=== PATIENT | male | born 1945 | race Caucasian/White ===

== ENCOUNTER 2018-12-24 02:05 | Emergency (ER) | payer MEDICARE, BC ==
[2018-12-24] MEDS ORDERED: Diltiazem 25 MG/5 ML SDV IVPUSH ONE ×2 (02:14→03:15)
--- NOTE | 2018-12-24 02:21 | EDM.PDOC ---
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 He's been feeling very nauseous, has had a sore throat and cold symptoms for the past several days. He did not take any of his medicines yesterday because he thought he would "throat normal". Tonight he wasn't feeling well, got up at the side of his bed, felt very diaphoretic and lightheaded and then fainted. He did not have chest pain, shortness of breath, headache but has had persistent nausea. EMS found him in atrial fibrillation with rapid ventricular response up to 130. He remains in atrial fibrillation, rate is 132, frequent PVCs. Onset: Unknown/Unsure Associated Symptoms: Reports: Cough, Malaise, Nausea/Vomiting, Shortness of Breath, Weakness, Other (Rhinitis and conjunctivitis, mattering of the eyes). Denies: Chest Pain - Related Data Allergies Allergy/AdvReac Type Severity Reaction Status Date / Time No Known Allergies Allergy Verified 12/24/18 02:09 Home Meds: Home Meds Aspirin [Ecotrin] 81 mg PO DAILY 11/18/13 [History] Clopidogrel Bisulfate [Clopidogrel] 75 mg PO DAILY 11/18/13 [History] Ezetimibe [Zetia] 10 mg PO DAILY 11/18/13 [History] HCTZ/Triamterene [Maxzide 25-37.5 MG] 25 - 37.5 mg PO DAILY 11/18/13 [History] Krill/Om-3/DHA/EPA/Phospho/Ast [Krill Oil 1,000 mg Softgel] 1 each PO DAILY [History] Metoprolol Tartrate [Lopressor] 100 mg PO BID 11/18/13 [History] Niacin 500 mg PO DAILY 11/18/13 [History] Ranitidine [Zantac] 150 mg PO BID 11/18/13 [History] Sildenafil [Viagra] 100 mg PO ASDIRECTED PRN 11/18/13 [History] amLODIPine Besylate [Amlodipine Besylate] 5 mg PO DAILY 11/18/13 [History] atorvaSTATin [Lipitor] 40 mg PO DAILY 11/18/13 [History] Acetaminophen [Tylenol] 1 tab PO Q6H PRN 12/24/18 [History] Amiodarone HCl [Pacerone] 1 tab PO BID 12/24/18 [History] Gabapentin [Neurontin] 1 tab PO BID 12/24/18 [History] Nitroglycerin [Nitrostat] 1 tab PO ASDIRECTED 12/24/18 [History] Tofacitinib Citrate [Xeljanz] 5 mg pe PO BID 12/24/18 [History] ED ROS GENERAL - Review of Systems Review Of Systems: See Below Constitutional: Reports: Malaise, Decreased Appetite. Denies: Fever HEENT: Reports: Other (eye mattering) Respiratory: Reports: Shortness of Breath (Intermittent, not persistent), Cough (Nonproductive) Cardiovascular: Denies: Chest Pain, Palpitations GI/Abdominal: Reports: Nausea, Vomiting. Denies: Abdominal Pain : Reports: No Symptoms Skin: Reports: Diaphoresis Neurological: Reports: Weakness. Denies: Confusion, Dizziness, Headache Psychiatric: Reports: No Symptoms ED EXAM, GENERAL - Physical Exam Exam: See Below Exam Limited By: No Limitations General Appearance: Alert, No Apparent Distress Eye Exam: Bilateral Eye: Other (Just mild conjunctival erythema, no mattering or exudate) Head: Other (Healing sutured laceration on the left side of the nasal bridge) Neck: Supple, Non-Tender Respiratory/Chest: No Respiratory Distress, Lungs Clear Cardiovascular: Tachycardia, Irregularly Irregular GI/Abdominal: Soft, Non-Tender Extremities: Other (Just a trace of ankle edema bilaterally, symmetric) Neurological: Alert, Oriented Psychiatric: Normal Affect, Normal Mood Skin Exam: Warm, Dry, Other (Some superficial bruising on the left forearm, healing laceration on his nose) EKG INTERPRETATION EKG Date: 12/24/18 Time: 02:10 Rhythm: A-Fib Rate (Beats/Min): 142 QRS: Normal EKG Interpretation Comments: Atrial fibrillation with rapid ventricular response, frequent PVCs Course - Vital Signs Last Recorded V/S: Last Vital Signs Temp 97.2 F 12/24/18 02:10 Pulse 117 H 12/24/18 03:45 Resp 18 12/24/18 03:45 BP 126/46 L 12/24/18 03:45 Pulse Ox 93 L 12/24/18 03:45 - Orders/Labs/Meds Orders: Active Orders 24 hr Category Date Time Status EKG Documentation Completion [RC] ASDIRECTED Care 12/24/18 02:14 Active EKG 12 Lead [EK] Routine Ther 12/24/18 02:13 Ordered Labs: Laboratory Tests 12/24/18 12/24/18 Range/Units 02:20 02:20 WBC 13.4 H (4.5-11.0) K/uL RBC 4.43 (4.30-5.90) M/uL Hgb 13.8 (12.0-15.0) g/dL Hct 41.6 (40.0-54.0) % MCV 94 (80-98) fL MCH 31 (27-31) pg MCHC 33 (32-36) % Plt Count 217 (150-400) K/uL Neut % (Auto) 79 H (36-66) % Lymph % (Auto) 9 L (24-44) % [place] % (Auto) 12 H (2-6) % Eos % (Auto) 0 L (2-4) % Baso % (Auto) 0 (0-1) % Sodium 138 L (140-148) mmol/L Potassium 3.8 (3.6-5.2) mmol/L Chloride 100 (100-108) mmol/L Carbon Dioxide 26 (21-32) mmol/L Anion Gap 15.8 H (5.0-14.0) mmol/L BUN 18 (7-18) mg/dL Creatinine 1.2 (0.8-1.3) mg/dL Est Cr Clr Drug Dosing 60.14 mL/min Estimated GFR (MDRD) 60 (>60) Glucose 159 H (74-106) mg/dL Calcium 8.8 (8.5-10.1) mg/dL Total Bilirubin 0.9 (0.2-1.0) mg/dL AST 17 (15-37) U/L ALT 23 (12-78) U/L Alkaline Phosphatase 43 L (46-116) U/L Troponin I 0.408 H* (0.000-0.056) ng/mL Total Protein 7.2 (6.4-8.2) g/dL Albumin 3.3 L (3.4-5.0) g/dL Globulin 3.9 H (2.3-3.5) g/dL Albumin/Globulin Ratio 0.9 L (1.2-2.2) Meds: Medications Discontinued Medications Generic Name Dose Route Start Last Admin Trade Name Jhonnyq PRN Reason Stop Dose Admin Diltiazem HCl 25 mg 12/24/18 02:14 12/24/18 02:18 Diltiazem IVPUSH 12/24/18 02:15 25 mg ONETIME ONE Administration Diltiazem HCl 20 mg 12/24/18 03:15 12/24/18 03:20 Diltiazem IVPUSH 12/24/18 03:16 20 mg ONETIME ONE Administration Diltiazem HCl 125 mg/ Sodium 125 mls @ 5 mls/hr 12/24/18 03:00 12/24/18 03:04 Chloride IV 5 mg/hr TITRATE ISAIAH 5 mls/hr Administration Protocol 5 MG/HR Sodium Chloride 1,000 mls @ 500 mls/hr 12/24/18 03:18 12/24/18 03:32 Normal Saline IV 12/24/18 05:17 500 mls/hr ONETIME ONE Administration Ondansetron HCl 4 mg 12/24/18 02:28 12/24/18 02:33 Zofran IVPUSH 12/24/18 02:29 4 mg ONETIME ONE Administration - Re-Assessments/Exams Free Text/Narrative Re-Assessment/Exam: 12/24/18 02:24 After the EKG was obtained, cardiac monitoring was continued. CBC, CMP and troponin were obtained, 1 view chest x-ray was ordered and we will slow his rate with 25 mg of IV Cardizem. 12/24/18 03:09 IV Cardizem controlled his atrial fibrillation extremely well for 15-20 minutes , with a rate from 85-95. However when the Cardizem wore off he went in atrial flutter with a rate of 165. Troponin returned elevated at 0.4. A Cardizem drip was then started, phone consult with [facility] was obtained and he was accepted for transfer at 3 AM. Chest x-ray showed no infiltrate. 12/24/18 03:15 Second 20 mg Cardizem bolus was given because the patient was in a persistent 2- 1 atrial flutter even on 5 mg per hour IV Cardizem drip. Departure - Departure Time of Disposition: 03:47 Disposition: DC/Tfer to Acute Hospital 02 Reason for Transfer *Q: Other Clinical Impression: Atrial fibrillation with rapid ventricular response, Elevated troponin, Viral URI with cough Nausea and vomiting Qualifiers: Vomiting type: unspecified Vomiting Intractability: non-intractable Qualified Code(s): R11.2 - Nausea with vomiting, unspecified Referrals: Lawson Smith MD [Primary Care Provider] - Forms: ED Department Discharge Care Plan Goals: Patient will be transferred to [facility] on a Cardizem drip for rate control, to be admitted and evaluated for new onset atrial fibrillation with RVR and elevated troponin. - My Orders Last 24 Hours: My Active Orders 12/24/18 02:13 EKG 12 Lead [EK] Routine 12/24/18 02:14 EKG Documentation Completion [RC] ASDIRECTED - Assessment/Plan Last 24 Hours: My Active Orders 12/24/18 02:13 EKG 12 Lead [EK] Routine 12/24/18 02:14 EKG Documentation Completion [RC] ASDIRECTED
[2018-12-24] MEDS ORDERED: Ondansetron 4 MG/2 ML SDV IVPUSH ONE (02:28)
[2018-12-24] MEDS ORDERED: Diltiazem 125 MG in Sodium Chloride 0.9% 100 ML IV SCH (03:00)
--- NOTE | 2018-12-24 03:03 | CRLCR ---
INDICATION: Cough. COMPARISON: None. FINDINGS/IMPRESSION: Semi upright portable AP chest radiograph. Lungs are clear aside from minimal right mid lung and lingular stranding consistent with a small amount of atelectasis or scarring. No pleural effusions. Normal heart size. Status post median sternotomy. No acute osseous findings. Dictated by Chivo Tillman MD @ 12/24/2018 3:02:33 AM Dictated by: Chivo Tillman MD @ 12/24/2018 03:02:40 (Electronically Signed)
[2018-12-24] MEDS ORDERED: Sodium Chloride 0.9% 1,000 ML IV ONE (03:18)
== END 2018-12-24 03:48 ==
LOC: JP.ED 02:05
DX: I48.91 Unspecified atrial fibrillation (principal); J06.9 Acute upper respiratory infection, unspecified; R74.8 Abnormal levels of other serum enzymes; R11.2 Nausea with vomiting, unspecified; Z79.899 Other long term (current) drug therapy; Z79.82 Long term (current) use of aspirin
CPT/HCPCS: 36415; 71045; 80053; 84484; 85025; 93005; 96365; 96375; 96376; 99284; J2405; J3490; J7030

== ENCOUNTER 2020-10-08 07:44 | Day surgery (SDC) | payer MEDICARE, BC ==
[2020-10-08] MEDS ORDERED: Sodium Chloride 0.9% 1,000 ML IV SCH (08:30)
[2020-10-08] MEDS ORDERED: fentaNYL 100 MCG/2 ML SDV ONE (08:36)
[2020-10-08] MEDS ORDERED: Propofol 200 MG/20 ML SDV ONE (08:36)
[2020-10-08] MEDS ORDERED: Midazolam 1 MG/ML 2 ML SDV ONE (08:36)
--- NOTE | 2020-10-08 12:19 | OR ---
DATE OF PROCEDURE: 10/08/2020 SURGEON: Ventura Quiñones MD PROCEDURE: Colonoscopy. FINDINGS: Normal colonoscopy. PREOPERATIVE DIAGNOSIS: Screening colonoscopy. POSTOPERATIVE DIAGNOSIS: Screening colonoscopy. RISKS: Risks, benefits, alternatives, and limitations including, but not limited to, infection, bleeding, perforation, false positives and false negatives were explained to the patient who wished to proceed. PROCEDURE IN DETAIL: The patient was placed in left lateral decubitus position. Digital rectal exam was performed without abnormality. Scope was introduced and advanced atraumatically to the ileocecal valve. Photo was taken of the appendiceal orifice. The scope was brought back to the ascending, transverse, descending colon, and retroflexed. No evidence of old or new blood. No masses. No polyps. No abnormalities on retroflexion. Greater than 8 minutes was spent removing the scope. The prep is supple, approximately 90% luminal surface could be seen. The patient tolerated procedure well. Ventura Quiñones MD /[id number]
== END 2020-10-08 11:26 | disposition home or self-care (01) ==
LOC: JP.SDS 07:44
PROVIDERS: ATTEND Surgery
DX: Z12.11 Encounter for screening for malignant neoplasm of colon (principal); I25.10 Atherosclerotic heart disease of native coronary artery without angina pectoris; I25.2 Old myocardial infarction; I10 Essential (primary) hypertension; I48.91 Unspecified atrial fibrillation; Z88.8 Allergy status to other drugs, medicaments and biological substances
CPT/HCPCS: G0121; J2250; J2704; J3010; J7030

== ENCOUNTER 2023-09-16 05:59 | Inpatient (IN) | payer MEDICARE, BC ==
[2023-09-16] MEDS ORDERED: Sodium Chloride 0.9% 10 ML Syringe FLUSH PRN (06:22)
[2023-09-16 06:50] LABS: BASOPHILS PERCENT AUTO 0.1 % (0.1-1.3); EOSINOPHILS ABSOLUTE AUTO 0.08 K/uL (0.00-0.40); EOSINOPHILS PERCENT AUTO 0.8 % (0.0-5.4); HEMATOCRIT 37.2 % (38.4-49.7); HEMOGLOBIN 13.1 g/dL (12.9-16.9); IMMATURE GRAN ABSOLUTE AUTO 0.05 K/uL (0.00-0.23); IMMATURE GRAN PERCENT AUTO 0.5 % (0.0-0.7); LYMPHOCYTES ABSOLUTE AUTO 1.19 K/uL (0.8-3.3); LYMPHOCYTES PERCENT AUTO 12.3 % (11.4-47.7); MEAN CORPUSCULAR HEMOGLOBIN 31.9 pg (31.6-35.5); MEAN CORPUSCULAR HGB CONC 35.2 g/dL (31.6-35.5); MEAN CORPUSCULAR VOLUME 90.5 fL (81.4-99.0); MONOCYTES ABSOLUTE AUTO 1.04 K/uL (0.20-0.90); MONOCYTES PERCENT AUTO 10.8 % (3.3-12.6); NEUTROPHILS ABSOLUTE AUTO 7.27 K/uL (1.0-7.6); NEUTROPHILS PERCENT AUTO 75.5 % (40.0-78.1); PLATELET COUNT,PLT 183 K/uL (130-375); RED BLOOD CELL COUNT 4.11 M/uL (4.14-5.76); WHITE BLOOD CELL COUNT,WBC 9.6 K/uL (3.2-11.0)
[2023-09-16 06:52] LABS: BASOPHILS ABSOLUTE AUTO 0.01 K/uL (0.00-0.10)
[2023-09-16] MEDS: Sodium Chloride 0.9% 1,000 ML IV STA (06:53)
[2023-09-16 07:16] LABS: ALANINE AMINOTRANSFERASE,ALT 40 U/L (12-78); ALBUMIN 3.6 g/dL (3.4-5.0); ALKALINE PHOSPHATASE 43 U/L (46-116); ANION GAP 10.8 mmol/L (5.0-14.0); ASPARTATE AMNIOTRANSFERASE,AST 27 U/L (15-37); BILIRUBIN TOTAL 0.4 mg/dL (0.2-1.0); BLOOD UREA NITROGEN,BUN 33 mg/dL (7-18); CALCIUM 9.1 mg/dL (8.5-10.1); CARBON DIOXIDE,CO2 30 mmol/L (21-32); CHLORIDE,CL 97 mmol/L (100-108); CREATININE 1.4 mg/dL (0.8-1.3); EST CRCL DRUG DOSING (CG) 46.35 mL/min; ESTIMATED GFR 52 mL/min (>60); GLUCOSE RANDOM 121 mg/dL (74-106); POTASSIUM,K 3.8 mmol/L (3.6-5.2); PROTEIN TOTAL,TP 7.4 g/dL (6.4-8.2); SODIUM,NA 134 mmol/L (140-148); TROPONIN I HIGH SENSITIVITY 9.2 pg/mL (<=60.3)
[2023-09-16] MEDS ORDERED: HYDROmorphone 0.5 MG/0.5 ML Syringe IVPUSH PRN (07:43)
[2023-09-16] MEDS: Iopamidol 612 MG/ML 100 ML Bottle IV PRN (08:03)
[2023-09-16] MEDS: Sodium Chloride 0.9% 80 ML IV SCH (08:03)
[2023-09-16] MEDS: Cyclobenzaprine 10 MG Tab PO ONE (09:32)
[2023-09-16 09:44] LABS: APPEARANCE,URINE CLEAR (CLEAR); BILIRUBIN,URINE NEGATIVE (NEGATIVE); COLOR,URINE YELLOW (YELLOW); GLUCOSE,URINE NEGATIVE (NEGATIVE); KETONES,URINE NEGATIVE (NEGATIVE); LEUKOCYTE ESTERASE,URINE NEGATIVE (NEGATIVE); NITRITE,URINE NEGATIVE (NEGATIVE); OCCULT BLOOD,URINE TRACE-LYSED (NEGATIVE); PH,URINE 6.5 (5.0-8.0); PROTEIN,URINE NEGATIVE (NEGATIVE); UROBILINOGEN,URINE 0.2 EU/dL (0.2-1.0)
[2023-09-16 09:52] LABS: BACTERIA,URINE NOT SEEN; EPITHELIAL CELLS,URINE NOT SEEN; MUCUS,URINE NOT SEEN; RBC,URINE NOT SEEN (0-5); WBC,URINE NOT SEEN (0-5)
[2023-09-16] MEDS ORDERED: Iopamidol 755 Mg/ML 100 ML Bottle IV SCH (10:15)
[2023-09-16] MEDS: Sodium Chloride 0.9% 10 ML Syringe FLUSH PRN (10:44)
[2023-09-16] MEDS: Sodium Chloride 0.9% 100 ML IV SCH (10:44)
[2023-09-16 12:09] LABS: CORONAVIRUS COVID-19 NAA NEGATIVE (NEGATIVE); INFLUENZA A NAA NEGATIVE (NEGATIVE); INFLUENZA B NAA NEGATIVE (NEGATIVE); RESPIRATORY SYNCYTIAL VIR NAA NEGATIVE (NEGATIVE)
[2023-09-16] MEDS: cefTRIAXone 1 GM in Sodium Chloride 0.9% 50 ML IV ONE (12:34)
[2023-09-16] MEDS: Dexamethasone 2 MG Tab PO ONE (12:53)
[2023-09-16] MEDS: Doxycycline 100 MG Cap PO ONE (12:54)
[2023-09-16] MEDS ORDERED: HYDROmorphone 1 MG/ML Syringe IVPUSH PRN (13:25)
[2023-09-16] MEDS ORDERED: Ondansetron 4 MG Tab.DIS PO PRN (13:25)
[2023-09-16] MEDS ORDERED: Acetaminophen 325 MG Tab PO PRN (13:25)
[2023-09-16] MEDS ORDERED: Ondansetron 4 MG/2 ML SDV IV PRN (13:25)
[2023-09-16] MEDS ORDERED: Albuterol 0.083% 2.5 MG/3 ML Neb Soln NEB PRN (13:25)
[2023-09-16] MEDS: Acetaminophen 500 MG Tab PO SCH (14:18)
[2023-09-16] MEDS: oxyCODONE 5 MG Tab PO PRN (18:02)
[2023-09-16] MEDS: Lactobacillus Rhamnosus GG (Probiotic) Cap PO SCH (20:09)
[2023-09-16] MEDS: Dexamethasone 2 MG Tab PO SCH (20:09)
[2023-09-16] MEDS: Apixaban 5 MG Tab PO SCH (20:09)
[2023-09-16] MEDS: Famotidine 20 MG Tab PO SCH (20:13)
[2023-09-16] MEDS: TOFACITINIB CITRATE 5 MG PO SCH (20:13)
[2023-09-16] MEDS: Gabapentin 300 MG Cap PO SCH (20:13)
[2023-09-16] MEDS: Metoprolol Tartrate 50 MG Tab PO SCH (20:13)
[2023-09-16] MEDS: Doxycycline 100 MG Cap PO SCH (20:15)
[2023-09-16] MEDS: Sennosides/Docusate Sodium 50-8.6 MG Tab PO PRN (20:21)
[2023-09-16] MEDS: Ezetimibe 10 MG Tab PO SCH (20:39)
[2023-09-16] MEDS: atorvaSTATin 20 MG Tab PO SCH (20:39)
[2023-09-17 04:52] LABS: HEMATOCRIT 34.8 % (38.4-49.7); HEMOGLOBIN 12.3 g/dL (12.9-16.9); MEAN CORPUSCULAR HEMOGLOBIN 31.5 pg (31.6-35.5); MEAN CORPUSCULAR HGB CONC 35.3 g/dL (31.6-35.5); RED BLOOD CELL COUNT 3.91 M/uL (4.14-5.76); WHITE BLOOD CELL COUNT,WBC 8.1 K/uL (3.2-11.0)
[2023-09-17 05:18] LABS: C-REACTIVE PROTEIN 9.02 mg/dL (<0.50); CALCIUM 9.1 mg/dL (8.5-10.1); CREATININE 1.1 mg/dL (0.8-1.3); EST CRCL DRUG DOSING (CG) 58.99 mL/min; POTASSIUM,K 4.1 mmol/L (3.6-5.2)
[2023-09-17 05:19] LABS: ANION GAP 12.1 mmol/L (5.0-14.0)
[2023-09-17] MEDS ORDERED: Ezetimibe 10 MG Tab PO SCH (09:00)
[2023-09-17] MEDS ORDERED: Niacin 250 MG Tab.ER PO SCH (09:00)
[2023-09-17] MEDS ORDERED: atorvaSTATin 20 MG Tab PO SCH (09:00)
[2023-09-17] MEDS: Clopidogrel 75 MG Tab PO SCH (09:14)
[2023-09-17] MEDS: Hydrochlorothiazide/Triamterene 25-37.5 Tab PO SCH ×2 (09:19→09:22)
[2023-09-17] MEDS: amLODIPine 5 MG Tab PO SCH ×2 (09:22→20:33)
[2023-09-17] MEDS: cefTRIAXone 2 GM in Sodium Chloride 0.9% 50 ML IV SCH (09:22)
[2023-09-17] MEDS: NIACIN 500 MG PO SCH (09:23)
[2023-09-17] MEDS: Magnesium Hydroxide 400 MG/5 ML Susp 30 ML Cup PO PRN (15:19)
[2023-09-18 00:40] LABS: LYME AB IgG Negative (Negative)
[2023-09-18 00:42] LABS: LYME AB IgM Negative (Negative)
[2023-09-18 05:14] LABS: CALCIUM 9.1 mg/dL (8.5-10.1); CREATININE 1.2 mg/dL (0.8-1.3); EST CRCL DRUG DOSING (CG) 54.07 mL/min; POTASSIUM,K 4.2 mmol/L (3.6-5.2)
[2023-09-18 05:25] LABS: ANION GAP 13.2 mmol/L (5.0-14.0)
[2023-09-18] MEDS: Bisacodyl 5 MG Tab PO PRN (16:28)
[2023-09-18] MEDS: tiZANidine 2 MG Tab PO PRN (18:01)
[2023-09-19] MEDS: Bisacodyl 10 MG Supp RECTAL ONE (08:51)
[2023-09-19 11:48] VITALS: PULSE 59
[2023-09-19 16:00] VITALS: BP 149/68
== END 2023-09-19 18:28 | DRG 551 ==
LOC: JP.ED 05:59 → JP.MS 12:35
PROVIDERS: ADMIT Internal Medicine; ATTEND Hospitalist
DX: M48.061 Spinal stenosis, lumbar region without neurogenic claudication (principal); M25.552 Pain in left hip; J18.9 Pneumonia, unspecified organism; J96.01 Acute respiratory failure with hypoxia; I25.10 Atherosclerotic heart disease of native coronary artery without angina pectoris; I10 Essential (primary) hypertension; E78.00 Pure hypercholesterolemia, unspecified; I48.91 Unspecified atrial fibrillation; I25.2 Old myocardial infarction; I73.9 Peripheral vascular disease, unspecified; K21.9 Gastro-esophageal reflux disease without esophagitis; G62.9 Polyneuropathy, unspecified; M06.9 Rheumatoid arthritis, unspecified; M54.42 Lumbago with sciatica, left side; I48.0 Paroxysmal atrial fibrillation; Z95.5 Presence of coronary angioplasty implant and graft; Z95.1 Presence of aortocoronary bypass graft; Z88.8 Allergy status to other drugs, medicaments and biological substances; Z79.01 Long term (current) use of anticoagulants; Z86.16 Personal history of COVID-19; Z79.02 Long term (current) use of antithrombotics/antiplatelets; Z86.010 Personal history of colon polyps; Z79.899 Other long term (current) drug therapy; Z87.891 Personal history of nicotine dependence
CPT/HCPCS: 0241U; 36415; 71275; 74177; 80053; 81001; 83605; 83690; 84484; 85025; 87040; 96374; 96375; 99285 ×2; A9270; J0696; J3360; J3490 ×4; J7030; Q9967 ×2; 72158; 72158-26; 80048; 85027; 86140; 86618; 97110-GP; 97161-GP; 97165-GO; 99222; 99232; 99239; A9579; J8540

== ENCOUNTER 2023-12-19 11:41 | Inpatient (IN) | payer MEDICARE, BC ==
[2023-12-19 12:12] LABS: BASE EXCESS VENOUS 1.3 mm/L; CARBOXYHEMOGLOBIN 2.9 % (0.0-1.6); METHEMOGLOBIN 0.5 %; OXYHEMOGLOBIN 62.8 %; PH,VENOUS 7.474 (7.350-7.450); TOTAL HEMOGLOBIN 12.1 g/dL (13.5-18.0)
[2023-12-19 12:16] LABS: BASOPHILS PERCENT AUTO 0.2 % (0.1-1.3); EOSINOPHILS PERCENT AUTO 0.1 % (0.0-5.4); HEMATOCRIT 34.6 % (38.4-49.7); HEMOGLOBIN 11.7 g/dL (12.9-16.9); IMMATURE GRAN ABSOLUTE AUTO 0.12 K/uL (0.00-0.23); IMMATURE GRAN PERCENT AUTO 0.9 % (0.0-0.7); LYMPHOCYTES ABSOLUTE AUTO 0.66 K/uL (0.8-3.3); LYMPHOCYTES PERCENT AUTO 5.1 % (11.4-47.7); MEAN CORPUSCULAR HGB CONC 33.8 g/dL (31.6-35.5); MEAN CORPUSCULAR VOLUME 91.5 fL (81.4-99.0); MONOCYTES ABSOLUTE AUTO 0.45 K/uL (0.20-0.90); MONOCYTES PERCENT AUTO 3.5 % (3.3-12.6); NEUTROPHILS ABSOLUTE AUTO 11.78 K/uL (1.0-7.6); NEUTROPHILS PERCENT AUTO 90.2 % (40.0-78.1); PLATELET COUNT,PLT 246 K/uL (130-375); RED BLOOD CELL COUNT 3.78 M/uL (4.14-5.76)
[2023-12-19 12:16] LABS: PO2 VENOUS 37.2 mm/Hg
[2023-12-19 12:18] LABS: BASOPHILS ABSOLUTE AUTO 0.02 K/uL (0.00-0.10); EOSINOPHILS ABSOLUTE AUTO 0.01 K/uL (0.00-0.40)
[2023-12-19] MEDS: Sodium Chloride 0.9% 1,000 ML IV SCH ×2 (12:22→12:58)
[2023-12-19] MEDS: Norepinephrine Bit/D5W Premix 4 MG in Premix Bag 1 BAG IV SCH (12:30)
[2023-12-19] MEDS ORDERED: Norepinephrine 8 MG in Dextrose 5% in Water 250 ML IV SCH (12:30)
[2023-12-19 12:35] LABS: INR 1.1; PROTHROMBIN TIME 11.4 sec (9.2-10.6)
[2023-12-19] MEDS: cefTRIAXone 1 GM in Sodium Chloride 0.9% 50 ML IV ONE (12:39)
[2023-12-19 12:50] LABS: A/G RATIO 0.6 (1.2-2.2); ALANINE AMINOTRANSFERASE,ALT 20 U/L (12-78); ALBUMIN 2.5 g/dL (3.4-5.0); ALKALINE PHOSPHATASE 55 U/L (46-116); ASPARTATE AMNIOTRANSFERASE,AST 21 U/L (15-37); BILIRUBIN TOTAL 0.7 mg/dL (0.2-1.0); BLOOD UREA NITROGEN,BUN 15 mg/dL (7-18); CALCIUM 9.2 mg/dL (8.5-10.1); CARBON DIOXIDE,CO2 25 mmol/L (21-32); CHLORIDE,CL 95 mmol/L (100-108); EST CRCL DRUG DOSING (CG) 64.89 mL/min; ESTIMATED GFR 78 mL/min (>60); GLUCOSE RANDOM 176 mg/dL (74-106); POTASSIUM,K 4.5 mmol/L (3.6-5.2); PRO B-TYPE NATRIUR PEPT,BNPPRO 4132 pg/mL (5-450); PROTEIN TOTAL,TP 6.7 g/dL (6.4-8.2); SODIUM,NA 131 mmol/L (140-148); TROPONIN I HIGH SENSITIVITY 10.1 pg/mL (<=60.3)
[2023-12-19 13:02] LABS: ANION GAP 15.5 mmol/L (5.0-14.0)
[2023-12-19 13:59] LABS: INFLUENZA A NAA NEGATIVE (NEGATIVE); INFLUENZA B NAA NEGATIVE (NEGATIVE); RESPIRATORY SYNCYTIAL VIR NAA NEGATIVE (NEGATIVE)
[2023-12-19 14:00] LABS: CORONAVIRUS COVID-19 NAA POSITIVE (NEGATIVE)
[2023-12-19 14:14] LABS: APPEARANCE,URINE CLEAR (CLEAR); BILIRUBIN,URINE NEGATIVE (NEGATIVE); COLOR,URINE YELLOW (YELLOW); GLUCOSE,URINE NEGATIVE (NEGATIVE); KETONES,URINE NEGATIVE (NEGATIVE); LEUKOCYTE ESTERASE,URINE NEGATIVE (NEGATIVE); NITRITE,URINE NEGATIVE (NEGATIVE); OCCULT BLOOD,URINE TRACE-INTACT (NEGATIVE); PH,URINE 7.5 (5.0-8.0); PROTEIN,URINE NEGATIVE (NEGATIVE); UROBILINOGEN,URINE 0.2 EU/dL (0.2-1.0)
[2023-12-19 14:23] LABS: AMORPHOUS SEDIMENT,URINE NOT SEEN; AMPHETAMINES SCREEN, URINE NEGATIVE (NEGATIVE); BACTERIA,URINE NOT SEEN; BARBITURATE SCREEN,URINE NEGATIVE (NEGATIVE); BENZODIAZEPINES SCREEN,URINE NEGATIVE (NEGATIVE); EPITHELIAL CELLS,URINE NOT SEEN; METHADONE SCREEN, URINE NEGATIVE (NEGATIVE); METHAMPHETAMINES SCREEN, URINE NEGATIVE (NEGATIVE); MUCUS,URINE NOT SEEN; RBC,URINE 0-5 (0-5); WBC,URINE 0-5 (0-5)
[2023-12-19 14:24] LABS: OXYCODONE SCREEN,URINE PRESUMPTIVE POSITIVE (NEGATIVE); PROPOXYPHENE SCREEN,URINE NEGATIVE (NEGATIVE); THC SCREEN,URINE 50 NG/ML NEGATIVE (NEGATIVE)
[2023-12-19] MEDS ORDERED: Sodium Chloride 0.9% 1,000 ML IV SCH (16:24)
[2023-12-19] MEDS ORDERED: Magnesium Hydroxide 400 MG/5 ML Susp 30 ML Cup PO PRN (16:24)
[2023-12-19] MEDS ORDERED: Acetaminophen 325 MG Tab PO PRN (16:24)
[2023-12-19] MEDS ORDERED: Ondansetron 4 MG Tab.DIS PO PRN (16:24)
[2023-12-19] MEDS ORDERED: Benzonatate 100 MG Cap PO PRN (16:24)
[2023-12-19] MEDS: Metoprolol Tartrate 25 MG Tab PO ONE (16:38)
[2023-12-19] MEDS: methylPREDNISolone Sodium Succinate 125 MG/2 ML SDV IVPUSH ONE (16:42)
[2023-12-19] MEDS: REMDESIVIR 200 MG in Sodium Chloride 0.9% 250 ML IV ONE (17:16)
[2023-12-19] MEDS: LORazepam 2 MG/ML SDV IVPUSH PRN ×2 (18:43→19:35)
[2023-12-19] MEDS: Doxycycline 100 MG in Sodium Chloride 0.9% 100 ML IV SCH (18:45)
[2023-12-19] MEDS: Furosemide 40 MG/4 ML VIAL IVPUSH ONE (19:51)
[2023-12-19] MEDS: Morphine 2 MG/ML SYRINGE IVPUSH PRN (19:58)
[2023-12-19] MEDS ORDERED: Diltiazem 100 MG in Sodium Chloride 0.9% 100 ML IV SCH (20:45)
[2023-12-19] MEDS ORDERED: Gabapentin 100 MG Cap PO SCH (21:00)
[2023-12-19] MEDS ORDERED: Acetaminophen 500 MG Tab PO SCH (21:00)
[2023-12-19] MEDS ORDERED: Baclofen 10 MG Tab PO SCH (21:00)
[2023-12-19] MEDS ORDERED: Apixaban 5 MG Tab PO SCH (21:00)
[2023-12-19] MEDS ORDERED: Lactobacillus Rhamnosus GG (Probiotic) Cap PO SCH (21:00)
[2023-12-19] MEDS: Heparin Sodium 5,000 UNITS in Sodium Chloride 0.9% 500 ML IV SCH (21:00)
[2023-12-19] MEDS ORDERED: Metoprolol Tartrate 25 MG Tab PO SCH (21:00)
[2023-12-19] MEDS: propofoL 100 ML IV SCH (21:30)
[2023-12-19 21:55] LABS: BASE EXCESS ARTERIAL -6.1 mm/L; BICARBONATE,ARTERIAL 18.6 mmol/L (22.0-26.0); CARBOXYHEMOGLOBIN 2.2 % (0.0-1.6); METHEMOGLOBIN 0.7 %; O2 SATURATION ARTERIAL 96.8 % (95.0-98.0); TOTAL HEMOGLOBIN 10.9 g/dL (13.5-18.0)
[2023-12-19] MEDS ORDERED: Calcium Carbonate/Vitamin D3 1500 MG-400 Units Tab PO SCH (22:00)
[2023-12-19] MEDS ORDERED: Propofol 200 MG/20 ML SDV ONE (22:05)
[2023-12-19] MEDS ORDERED: Succinylcholine 200 MG/10 ML MDV ONE (22:05)
[2023-12-19 22:42] LABS: BASE EXCESS ARTERIAL -3.9 mm/L; CARBOXYHEMOGLOBIN 1.8 % (0.0-1.6); METHEMOGLOBIN 0.7 %; O2 SATURATION ARTERIAL 98.7 % (95.0-98.0); OXYHEMOGLOBIN 96.2 %; PCO2 ARTERIAL 34.1 mmHg (35.0-42.0); TOTAL HEMOGLOBIN 10.7 g/dL (13.5-18.0)
[2023-12-19] MEDS: Heparin Sodium 5,000 Units/ML Vial ONE (23:31)
[2023-12-19] MEDS: propofoL 100 ML ONE (23:31)
[2023-12-19] MEDS: methylPREDNISolone Sodium Succinate 125 MG/2 ML SDV IVPUSH SCH (23:56)
[2023-12-20] MEDS: Sodium Chloride 0.9% 1,000 ML IV SCH (00:34)
[2023-12-20] MEDS: Heparin Sodium 5,000 Units/ML Vial ONE (00:35)
[2023-12-20] MEDS ORDERED: cefTRIAXone 2 GM in Sodium Chloride 0.9% 50 ML IV SCH (01:00)
[2023-12-20 05:51] LABS: BICARBONATE,ARTERIAL 22.2 mmol/L (22.0-26.0); CARBOXYHEMOGLOBIN 2.5 % (0.0-1.6); HEMATOCRIT 30.7 % (38.4-49.7); HEMOGLOBIN 10.3 g/dL (12.9-16.9); MEAN CORPUSCULAR HEMOGLOBIN 30.5 pg (31.6-35.5); MEAN CORPUSCULAR HGB CONC 33.6 g/dL (31.6-35.5); MEAN CORPUSCULAR VOLUME 90.8 fL (81.4-99.0); METHEMOGLOBIN 0.6 %; OXYHEMOGLOBIN 95.9 %; PCO2 ARTERIAL 33.4 mmHg (35.0-42.0); RED BLOOD CELL COUNT 3.38 M/uL (4.14-5.76); TOTAL HEMOGLOBIN 10.8 g/dL (13.5-18.0); WHITE BLOOD CELL COUNT,WBC 9.7 K/uL (3.2-11.0)
[2023-12-20 06:03] LABS: A/G RATIO 0.6 (1.2-2.2); ALANINE AMINOTRANSFERASE,ALT 20 U/L (12-78); ALBUMIN 2.2 g/dL (3.4-5.0); ALKALINE PHOSPHATASE 53 U/L (46-116); ASPARTATE AMNIOTRANSFERASE,AST 22 U/L (15-37); BILIRUBIN TOTAL 0.5 mg/dL (0.2-1.0); BLOOD UREA NITROGEN,BUN 15 mg/dL (7-18); CALCIUM 8.6 mg/dL (8.5-10.1); CARBON DIOXIDE,CO2 24 mmol/L (21-32); CHLORIDE,CL 100 mmol/L (100-108); CREATININE 0.8 mg/dL (0.8-1.3); EST CRCL DRUG DOSING (CG) 81.11 mL/min; ESTIMATED GFR 92 mL/min (>60); GLUCOSE RANDOM 233 mg/dL (74-106); MAGNESIUM 1.7 mg/dL (1.8-2.4); PROTEIN TOTAL,TP 6.2 g/dL (6.4-8.2); SODIUM,NA 136 mmol/L (140-148); TROPONIN I HIGH SENSITIVITY 14.1 pg/mL (<=60.3)
[2023-12-20] MEDS: cefTAZidime Pentahydrate 2 GM in Sodium Chloride 0.9% 50 ML IV SCH ×2 (07:26)
[2023-12-20] MEDS ORDERED: Pantoprazole 40 MG Tab.CR PO SCH (07:30)
[2023-12-20] MEDS ORDERED: predniSONE 20 MG Tab PO SCH (08:00)
[2023-12-20] MEDS: Magnesium Sulfate/Water Premix 2 GM in Premix Bag 1 BAG IV ONE (08:22)
[2023-12-20] MEDS ORDERED: atorvaSTATin 20 MG Tab PO SCH (09:00)
[2023-12-20] MEDS ORDERED: Ezetimibe 10 MG Tab PO SCH (09:00)
[2023-12-20] MEDS ORDERED: Sulfamethoxazole/Trimethoprim 800-160 MG Tab PO SCH (09:00)
[2023-12-20] MEDS ORDERED: Clopidogrel 75 MG Tab PO SCH (09:00)
[2023-12-20] MEDS: Insulin Lispro 100 Unit/ML 3 ML KwikPen SUBCUT SCH (09:29)
[2023-12-20 16:17] LABS: BASE EXCESS ARTERIAL 0 mm/L; BICARBONATE,ARTERIAL 23.2 mmol/L (22.0-26.0); METHEMOGLOBIN 0.3 %; OXYHEMOGLOBIN 96.1 %; TOTAL HEMOGLOBIN 9.9 g/dL (13.5-18.0)
[2023-12-20 16:35] LABS: O2 SATURATION ARTERIAL > 99.3 % (95.0-98.0)
[2023-12-20] MEDS: REMDESIVIR 100 MG in Sodium Chloride 0.9% 100 ML IV SCH (17:36)
[2023-12-20] MEDS ORDERED: Succinylcholine 200 MG/10 ML MDV ONE (21:05)
[2023-12-20] MEDS ORDERED: Propofol 200 MG/20 ML SDV ONE (21:05)
[2023-12-20] MEDS: Enoxaparin 40 MG/0.4 ML Syringe SUBCUT SCH (21:46)
[2023-12-21 05:09] LABS: MEAN CORPUSCULAR HEMOGLOBIN 30.4 pg (31.6-35.5); MEAN CORPUSCULAR HGB CONC 33.3 g/dL (31.6-35.5); MEAN CORPUSCULAR VOLUME 91.2 fL (81.4-99.0); RED BLOOD CELL COUNT 3.29 M/uL (4.14-5.76); WHITE BLOOD CELL COUNT,WBC 13.6 K/uL (3.2-11.0)
[2023-12-21 05:10] LABS: BASE EXCESS ARTERIAL 1.9 mm/L; BICARBONATE,ARTERIAL 24.5 mmol/L (22.0-26.0); CARBOXYHEMOGLOBIN 2.4 % (0.0-1.6); METHEMOGLOBIN 0.7 %; O2 SATURATION ARTERIAL 97.5 % (95.0-98.0); OXYHEMOGLOBIN 94.5 %; PCO2 ARTERIAL 32.6 mmHg (35.0-42.0); PO2 ARTERIAL 88.3 mmHg (75.0-100.0); TOTAL HEMOGLOBIN 10.4 g/dL (13.5-18.0)
[2023-12-21 05:32] LABS: A/G RATIO 0.5 (1.2-2.2); ALANINE AMINOTRANSFERASE,ALT 18 U/L (12-78); ALBUMIN 2.1 g/dL (3.4-5.0); ALKALINE PHOSPHATASE 49 U/L (46-116); ASPARTATE AMNIOTRANSFERASE,AST 18 U/L (15-37); BILIRUBIN TOTAL 0.5 mg/dL (0.2-1.0); BLOOD UREA NITROGEN,BUN 12 mg/dL (7-18); C-REACTIVE PROTEIN 13.89 mg/dL (<0.50); CALCIUM 8.5 mg/dL (8.5-10.1); CARBON DIOXIDE,CO2 27 mmol/L (21-32); CHLORIDE,CL 104 mmol/L (100-108); CREATININE 0.5 mg/dL (0.8-1.3); ESTIMATED GFR 106 mL/min (>60); GLUCOSE RANDOM 236 mg/dL (74-106); PROTEIN TOTAL,TP 6.1 g/dL (6.4-8.2); SODIUM,NA 139 mmol/L (140-148)
[2023-12-21] MEDS: Potassium Chloride 10 MEQ in Premix Bag 1 BAG IV SCH (09:19)
[2023-12-21] MEDS ORDERED: PROPOFOL IV ONE (13:45)
[2023-12-21 16:03] LABS: BASE EXCESS ARTERIAL 2.9 mm/L; BICARBONATE,ARTERIAL 25.3 mmol/L (22.0-26.0); CARBOXYHEMOGLOBIN 2.7 % (0.0-1.6); METHEMOGLOBIN 0.7 %; O2 SATURATION ARTERIAL 98.3 % (95.0-98.0); PCO2 ARTERIAL 31.9 mmHg (35.0-42.0); TOTAL HEMOGLOBIN 10.1 g/dL (13.5-18.0)
[2023-12-21] MEDS: Midazolam 1 MG/ML 2 ML SDV IVPUSH PRN (20:55)
[2023-12-22 04:56] LABS: BASE EXCESS ARTERIAL 3.2 mm/L; BICARBONATE,ARTERIAL 26.3 mmol/L (22.0-26.0); CARBOXYHEMOGLOBIN 2.7 % (0.0-1.6); METHEMOGLOBIN 0.7 %; O2 SATURATION ARTERIAL 96.7 % (95.0-98.0); OXYHEMOGLOBIN 93.4 %; PCO2 ARTERIAL 35.7 mmHg (35.0-42.0); PO2 ARTERIAL 80.7 mmHg (75.0-100.0); TOTAL HEMOGLOBIN 10.1 g/dL (13.5-18.0)
[2023-12-22 04:57] LABS: HEMATOCRIT 29.2 % (38.4-49.7); HEMOGLOBIN 9.6 g/dL (12.9-16.9); MEAN CORPUSCULAR HEMOGLOBIN 30.3 pg (31.6-35.5); MEAN CORPUSCULAR HGB CONC 32.9 g/dL (31.6-35.5); MEAN CORPUSCULAR VOLUME 92.1 fL (81.4-99.0); RED BLOOD CELL COUNT 3.17 M/uL (4.14-5.76); WHITE BLOOD CELL COUNT,WBC 10.2 K/uL (3.2-11.0)
[2023-12-22 05:21] LABS: A/G RATIO 0.5 (1.2-2.2); ALANINE AMINOTRANSFERASE,ALT 14 U/L (12-78); ALKALINE PHOSPHATASE 42 U/L (46-116); ASPARTATE AMNIOTRANSFERASE,AST 13 U/L (15-37); BILIRUBIN TOTAL 0.4 mg/dL (0.2-1.0); BLOOD UREA NITROGEN,BUN 13 mg/dL (7-18); CALCIUM 8.2 mg/dL (8.5-10.1); CARBON DIOXIDE,CO2 30 mmol/L (21-32); CHLORIDE,CL 105 mmol/L (100-108); CREATININE 0.5 mg/dL (0.8-1.3); ESTIMATED GFR 106 mL/min (>60); GLUCOSE RANDOM 216 mg/dL (74-106); POTASSIUM,K 3.3 mmol/L (3.6-5.2); PROTEIN TOTAL,TP 5.8 g/dL (6.4-8.2); SODIUM,NA 141 mmol/L (140-148)
[2023-12-22 05:25] LABS: ANION GAP 9.3 mmol/L (5.0-14.0)
[2023-12-22] MEDS: Potassium Chloride 10 MEQ in Premix Bag 1 BAG IV SCH (08:37)
[2023-12-22] MEDS: Levofloxacin/Dextrose 5%-Water 750 MG in Premix Bag 1 BAG IV SCH (08:49)
[2023-12-22] MEDS: Meropenem 1 GM in Sodium Chloride 0.9% 100 ML IV SCH (09:02)
[2023-12-22] MEDS: Vancomycin 2 GM in Sodium Chloride 0.9% 500 ML IV ONE (10:41)
[2023-12-22] MEDS ORDERED: Norepinephrine Bit/D5W Premix 4 MG in Premix Bag 1 BAG IV ONE (11:37)
[2023-12-22] MEDS ORDERED: Midazolam 1 MG/ML 2 ML SDV IVPUSH PRN (13:50)
[2023-12-22] MEDS: Heparin Sodium 5,000 UNITS in Sodium Chloride 0.9% 500 ML IV SCH (16:21)
[2023-12-22] MEDS: REMDESIVIR 100 MG in Sodium Chloride 0.9% 100 ML IV SCH (16:24)
[2023-12-23 04:41] LABS: BASE EXCESS ARTERIAL 5.8 mm/L; BICARBONATE,ARTERIAL 29.1 mmol/L (22.0-26.0); CARBOXYHEMOGLOBIN 2.8 % (0.0-1.6); HEMATOCRIT 30.7 % (38.4-49.7); HEMOGLOBIN 10.2 g/dL (12.9-16.9); MEAN CORPUSCULAR HEMOGLOBIN 30.3 pg (31.6-35.5); MEAN CORPUSCULAR HGB CONC 33.2 g/dL (31.6-35.5); MEAN CORPUSCULAR VOLUME 91.1 fL (81.4-99.0); METHEMOGLOBIN 0.8 %; OXYHEMOGLOBIN 95.4 %; RED BLOOD CELL COUNT 3.37 M/uL (4.14-5.76); TOTAL HEMOGLOBIN 10.8 g/dL (13.5-18.0); WHITE BLOOD CELL COUNT,WBC 7.3 K/uL (3.2-11.0)
[2023-12-23 05:02] LABS: A/G RATIO 0.5 (1.2-2.2); ALANINE AMINOTRANSFERASE,ALT 19 U/L (12-78); ALKALINE PHOSPHATASE 42 U/L (46-116); ASPARTATE AMNIOTRANSFERASE,AST 15 U/L (15-37); BILIRUBIN TOTAL 0.4 mg/dL (0.2-1.0); BLOOD UREA NITROGEN,BUN 13 mg/dL (7-18); CALCIUM 7.7 mg/dL (8.5-10.1); CARBON DIOXIDE,CO2 31 mmol/L (21-32); CHLORIDE,CL 104 mmol/L (100-108); CREATININE 0.5 mg/dL (0.8-1.3); ESTIMATED GFR 106 mL/min (>60); GLUCOSE RANDOM 226 mg/dL (74-106); POTASSIUM,K 3.2 mmol/L (3.6-5.2); PROTEIN TOTAL,TP 5.8 g/dL (6.4-8.2); SODIUM,NA 143 mmol/L (140-148); VANCOMYCIN RANDOM 15.8 ug/mL (0.0-50.0)
[2023-12-23 05:15] LABS: ANION GAP 11.2 mmol/L (5.0-14.0)
[2023-12-23] MEDS: Potassium Chloride 10 MEQ in Premix Bag 1 BAG IV SCH (09:01)
[2023-12-23] MEDS: Ondansetron 4 MG/2 ML SDV IV PRN (11:40)
[2023-12-23] MEDS: LORazepam 2 MG/ML SDV IVPUSH PRN (13:56)
[2023-12-23] MEDS: Pantoprazole 40 MG Vial IVPUSH SCH (13:56)
[2023-12-24 05:03] LABS: HEMATOCRIT 30.9 % (38.4-49.7); HEMOGLOBIN 10.3 g/dL (12.9-16.9); MEAN CORPUSCULAR HEMOGLOBIN 30.2 pg (31.6-35.5); MEAN CORPUSCULAR HGB CONC 33.3 g/dL (31.6-35.5); MEAN CORPUSCULAR VOLUME 90.6 fL (81.4-99.0); RED BLOOD CELL COUNT 3.41 M/uL (4.14-5.76); WHITE BLOOD CELL COUNT,WBC 9.7 K/uL (3.2-11.0)
[2023-12-24 05:26] LABS: A/G RATIO 0.6 (1.2-2.2); ALANINE AMINOTRANSFERASE,ALT 25 U/L (12-78); ALKALINE PHOSPHATASE 39 U/L (46-116); ASPARTATE AMNIOTRANSFERASE,AST 23 U/L (15-37); BILIRUBIN TOTAL 0.5 mg/dL (0.2-1.0); BLOOD UREA NITROGEN,BUN 17 mg/dL (7-18); CALCIUM 7.6 mg/dL (8.5-10.1); CARBON DIOXIDE,CO2 31 mmol/L (21-32); CHLORIDE,CL 104 mmol/L (100-108); CREATININE 0.5 mg/dL (0.8-1.3); ESTIMATED GFR 106 mL/min (>60); GLUCOSE RANDOM 187 mg/dL (74-106); POTASSIUM,K 3.7 mmol/L (3.6-5.2); PROTEIN TOTAL,TP 5.4 g/dL (6.4-8.2); SODIUM,NA 141 mmol/L (140-148)
[2023-12-24] MEDS: Metoprolol Tartrate 25 MG Tab PO SCH (09:12)
[2023-12-24] MEDS: Albuterol 6.7 GM Inhaler INH SCH (10:42)
[2023-12-24] MEDS ORDERED: methylPREDNISolone Sodium Succinate 125 MG/2 ML SDV IVPUSH SCH (16:00)
[2023-12-24] MEDS: methylPREDNISolone Sodium Succinate 40 MG/1 ML SDV IVPUSH SCH (16:09)
[2023-12-24] MEDS: Apixaban 5 MG Tab PO SCH (20:34)
[2023-12-24] MEDS: Pantoprazole 40 MG Tab.CR PO SCH (20:34)
[2023-12-25] MEDS: Furosemide 20 MG/2 ML VIAL IVPUSH ONE (01:50)
[2023-12-25] MEDS: Furosemide 20 MG/2 ML VIAL ONE (02:15)
[2023-12-25 05:47] LABS: HEMATOCRIT 33.6 % (38.4-49.7); HEMOGLOBIN 11.3 g/dL (12.9-16.9); MEAN CORPUSCULAR HEMOGLOBIN 30.3 pg (31.6-35.5); MEAN CORPUSCULAR HGB CONC 33.6 g/dL (31.6-35.5); MEAN CORPUSCULAR VOLUME 90.1 fL (81.4-99.0); RED BLOOD CELL COUNT 3.73 M/uL (4.14-5.76); WHITE BLOOD CELL COUNT,WBC 11.8 K/uL (3.2-11.0)
[2023-12-25 06:08] LABS: C-REACTIVE PROTEIN 1.53 mg/dL (<0.50); CALCIUM 8.1 mg/dL (8.5-10.1); CREATININE 0.6 mg/dL (0.8-1.3); EST CRCL DRUG DOSING (CG) 108.41 mL/min; MAGNESIUM 1.6 mg/dL (1.8-2.4); POTASSIUM,K 3.9 mmol/L (3.6-5.2)
[2023-12-25 06:09] LABS: ANION GAP 10.9 mmol/L (5.0-14.0)
[2023-12-25] MEDS: Dexamethasone 2 MG Tab PO SCH (08:09)
[2023-12-25] MEDS: Digoxin 125 MCG Tab PO SCH (12:27)
[2023-12-25] MEDS: Furosemide 40 MG/4 ML VIAL IVPUSH ONE ×2 (13:52→22:38)
[2023-12-25 15:46] LABS: BASE EXCESS ARTERIAL 6.8 mm/L; BICARBONATE,ARTERIAL 29.7 mmol/L (22.0-26.0); CARBOXYHEMOGLOBIN 3.2 % (0.0-1.6); METHEMOGLOBIN 0.4 %; O2 SATURATION ARTERIAL 96.4 % (95.0-98.0); OXYHEMOGLOBIN 92.9 %; PCO2 ARTERIAL 36.5 mmHg (35.0-42.0); PO2 ARTERIAL 78.1 mmHg (75.0-100.0); TOTAL HEMOGLOBIN 12.1 g/dL (13.5-18.0)
[2023-12-25] MEDS ORDERED: Sodium Chloride 0.9% 10 ML Syringe FLUSH PRN (16:52)
[2023-12-25] MEDS: Sodium Chloride 0.9% 100 ML IV SCH (17:38)
[2023-12-25] MEDS: Iopamidol 755 Mg/ML 100 ML Bottle IV SCH (17:38)
[2023-12-25] MEDS: Digoxin 500 MCG/2 ML Amp IVPUSH ONE (17:52)
[2023-12-26 05:43] LABS: BASE EXCESS ARTERIAL 9.5 mm/L; BICARBONATE,ARTERIAL 32.4 mmol/L (22.0-26.0); CARBOXYHEMOGLOBIN 2.5 % (0.0-1.6); METHEMOGLOBIN 0.5 %; O2 SATURATION ARTERIAL 98.6 % (95.0-98.0); OXYHEMOGLOBIN 95.6 %; PCO2 ARTERIAL 36.6 mmHg (35.0-42.0); TOTAL HEMOGLOBIN 12.8 g/dL (13.5-18.0)
[2023-12-26 05:49] LABS: HEMATOCRIT 36.1 % (38.4-49.7); HEMOGLOBIN 12.2 g/dL (12.9-16.9); MEAN CORPUSCULAR HEMOGLOBIN 30.3 pg (31.6-35.5); MEAN CORPUSCULAR HGB CONC 33.8 g/dL (31.6-35.5); MEAN CORPUSCULAR VOLUME 89.6 fL (81.4-99.0); RED BLOOD CELL COUNT 4.03 M/uL (4.14-5.76); WHITE BLOOD CELL COUNT,WBC 10.7 K/uL (3.2-11.0)
[2023-12-26 06:16] LABS: A/G RATIO 0.6 (1.2-2.2); ALANINE AMINOTRANSFERASE,ALT 38 U/L (12-78); ALBUMIN 2.1 g/dL (3.4-5.0); ALKALINE PHOSPHATASE 47 U/L (46-116); ASPARTATE AMNIOTRANSFERASE,AST 23 U/L (15-37); BILIRUBIN TOTAL 0.6 mg/dL (0.2-1.0); BLOOD UREA NITROGEN,BUN 23 mg/dL (7-18); CALCIUM 8.4 mg/dL (8.5-10.1); CARBON DIOXIDE,CO2 33 mmol/L (21-32); CHLORIDE,CL 99 mmol/L (100-108); CREATININE 0.6 mg/dL (0.8-1.3); DIGOXIN 0.63 ng/mL (0.90-2.00); EST CRCL DRUG DOSING (CG) 108.41 mL/min; ESTIMATED GFR 100 mL/min (>60); GLUCOSE RANDOM 145 mg/dL (74-106); MAGNESIUM 1.6 mg/dL (1.8-2.4); POTASSIUM,K 3.5 mmol/L (3.6-5.2); PROTEIN TOTAL,TP 5.5 g/dL (6.4-8.2); SODIUM,NA 138 mmol/L (140-148); VANCOMYCIN RANDOM 29.2 ug/mL (0.0-50.0)
[2023-12-26 06:18] LABS: ANION GAP 9.5 mmol/L (5.0-14.0)
[2023-12-26] MEDS: predniSONE 20 MG Tab PO SCH (07:42)
[2023-12-26] MEDS: Furosemide 20 MG/2 ML VIAL IVPUSH SCH (08:39)
[2023-12-26] MEDS: Magnesium Oxide 400 MG Tab PO SCH (08:39)
[2023-12-26] MEDS: Potassium Chloride 20 MEQ Tab.ER PO ONE ×2 (08:42→17:21)
[2023-12-26] MEDS: acetaZOLAMIDE 500 MG Vial IVPUSH SCH (08:43)
[2023-12-26] MEDS: Metoprolol Tartrate 50 MG Tab PO SCH (08:58)
[2023-12-26] MEDS: Magnesium Sulfate/Water Premix 2 GM in Premix Bag 1 BAG IV SCH (09:17)
[2023-12-26] MEDS: Albumin Human 25 GM in Premix Bag 1 BAG IV ONE (14:07)
[2023-12-27 05:09] LABS: HEMATOCRIT 35.2 % (38.4-49.7); HEMOGLOBIN 11.9 g/dL (12.9-16.9); MEAN CORPUSCULAR HEMOGLOBIN 30.5 pg (31.6-35.5); MEAN CORPUSCULAR HGB CONC 33.8 g/dL (31.6-35.5); MEAN CORPUSCULAR VOLUME 90.3 fL (81.4-99.0); RED BLOOD CELL COUNT 3.9 M/uL (4.14-5.76); WHITE BLOOD CELL COUNT,WBC 10.7 K/uL (3.2-11.0)
[2023-12-27 05:25] LABS: CALCIUM 8.7 mg/dL (8.5-10.1); CREATININE 0.5 mg/dL (0.8-1.3); DIGOXIN 0.77 ng/mL (0.90-2.00); EST CRCL DRUG DOSING (CG) 130.1 mL/min; MAGNESIUM 2.1 mg/dL (1.8-2.4); POTASSIUM,K 4.5 mmol/L (3.6-5.2)
[2023-12-27 05:29] LABS: ANION GAP 12.5 mmol/L (5.0-14.0)
[2023-12-27] MEDS: Albumin Human 25 GM in Premix Bag 1 BAG IV ONE (08:32)
[2023-12-27] MEDS: Metoprolol Succinate 50 MG Tab.ER PO SCH (19:18)
[2023-12-27] MEDS ORDERED: Metoprolol Tartrate 25 MG Tab PO SCH (21:00)
[2023-12-28 05:54] LABS: A/G RATIO 0.9 (1.2-2.2); ALANINE AMINOTRANSFERASE,ALT 30 U/L (12-78); ALKALINE PHOSPHATASE 50 U/L (46-116); ANION GAP 11.7 mmol/L (5.0-14.0); ASPARTATE AMNIOTRANSFERASE,AST 15 U/L (15-37); BILIRUBIN TOTAL 0.8 mg/dL (0.2-1.0); BLOOD UREA NITROGEN,BUN 24 mg/dL (7-18); CALCIUM 9.6 mg/dL (8.5-10.1); CARBON DIOXIDE,CO2 31 mmol/L (21-32); CHLORIDE,CL 97 mmol/L (100-108); CREATININE 0.6 mg/dL (0.8-1.3); EST CRCL DRUG DOSING (CG) 108.41 mL/min; ESTIMATED GFR 100 mL/min (>60); GLUCOSE RANDOM 154 mg/dL (74-106); POTASSIUM,K 3.7 mmol/L (3.6-5.2); PROTEIN TOTAL,TP 6.4 g/dL (6.4-8.2); SODIUM,NA 136 mmol/L (140-148)
[2023-12-28] MEDS ORDERED: Amiodarone 150 MG/3 ML SDV IVPUSH ONE (10:29)
[2023-12-28] MEDS: Amiodarone 150 MG in Dextrose 5% in Water 100 ML IV ONE (11:48)
[2023-12-28] MEDS: Albumin Human 25 GM in Premix Bag 1 BAG IV ONE (11:49)
[2023-12-28] MEDS: Potassium Chloride 20 MEQ Tab.ER PO ONE (17:19)
[2023-12-29 05:27] LABS: BASOPHILS PERCENT AUTO 0.1 % (0.1-1.3); EOSINOPHILS ABSOLUTE AUTO 0.04 K/uL (0.00-0.40); EOSINOPHILS PERCENT AUTO 0.4 % (0.0-5.4); HEMATOCRIT 36.5 % (38.4-49.7); HEMOGLOBIN 12.3 g/dL (12.9-16.9); IMMATURE GRAN ABSOLUTE AUTO 0.15 K/uL (0.00-0.23); IMMATURE GRAN PERCENT AUTO 1.4 % (0.0-0.7); LYMPHOCYTES ABSOLUTE AUTO 0.81 K/uL (0.8-3.3); LYMPHOCYTES PERCENT AUTO 7.3 % (11.4-47.7); MEAN CORPUSCULAR HGB CONC 33.7 g/dL (31.6-35.5); MONOCYTES ABSOLUTE AUTO 0.92 K/uL (0.20-0.90); MONOCYTES PERCENT AUTO 8.3 % (3.3-12.6); NEUTROPHILS ABSOLUTE AUTO 9.14 K/uL (1.0-7.6); NEUTROPHILS PERCENT AUTO 82.5 % (40.0-78.1); PLATELET COUNT,PLT 211 K/uL (130-375); WHITE BLOOD CELL COUNT,WBC 11.1 K/uL (3.2-11.0)
[2023-12-29 05:34] LABS: BASOPHILS ABSOLUTE AUTO 0.01 K/uL (0.00-0.10)
[2023-12-29 05:56] LABS: A/G RATIO 1.1 (1.2-2.2); ALANINE AMINOTRANSFERASE,ALT 27 U/L (12-78); ALBUMIN 3.4 g/dL (3.4-5.0); ALKALINE PHOSPHATASE 49 U/L (46-116); ASPARTATE AMNIOTRANSFERASE,AST 14 U/L (15-37); BLOOD UREA NITROGEN,BUN 21 mg/dL (7-18); CALCIUM 9.5 mg/dL (8.5-10.1); CARBON DIOXIDE,CO2 33 mmol/L (21-32); CHLORIDE,CL 97 mmol/L (100-108); CREATININE 0.5 mg/dL (0.8-1.3); DIGOXIN 1.24 ng/mL (0.90-2.00); ESTIMATED GFR 106 mL/min (>60); GLUCOSE RANDOM 133 mg/dL (74-106); POTASSIUM,K 3.9 mmol/L (3.6-5.2); PROTEIN TOTAL,TP 6.6 g/dL (6.4-8.2); SODIUM,NA 136 mmol/L (140-148); TSH ULTRASENSITIVE 2.361 uIU/mL (0.358-3.740)
[2023-12-29 05:59] LABS: ANION GAP 9.9 mmol/L (5.0-14.0)
[2023-12-29] MEDS: Albumin Human 25 GM in Premix Bag 1 BAG IV ONE (11:12)
[2023-12-29] MEDS: Insulin Lispro 100 Unit/ML 3 ML KwikPen SUBCUT SCH (12:15)
[2023-12-29] MEDS: Amiodarone 200 MG Tab PO SCH (21:09)
[2023-12-30 05:30] LABS: CALCIUM 9.9 mg/dL (8.5-10.1); CREATININE 0.6 mg/dL (0.8-1.3); EST CRCL DRUG DOSING (CG) 108.41 mL/min; POTASSIUM,K 3.8 mmol/L (3.6-5.2)
[2023-12-30 05:38] LABS: ANION GAP 12.8 mmol/L (5.0-14.0)
[2023-12-30] MEDS: predniSONE 5 MG Tab PO SCH (08:09)
[2023-12-30] MEDS: Acetaminophen 325 MG Tab PO PRN (20:37)
[2023-12-31 06:50] LABS: HEMOGLOBIN 13.1 g/dL (12.9-16.9); MEAN CORPUSCULAR HEMOGLOBIN 30.4 pg (31.6-35.5); MEAN CORPUSCULAR HGB CONC 34.5 g/dL (31.6-35.5); MEAN CORPUSCULAR VOLUME 88.2 fL (81.4-99.0); RED BLOOD CELL COUNT 4.31 M/uL (4.14-5.76); WHITE BLOOD CELL COUNT,WBC 12.9 K/uL (3.2-11.0)
[2023-12-31 07:09] LABS: ALANINE AMINOTRANSFERASE,ALT 20 U/L (12-78); ALBUMIN 3.3 g/dL (3.4-5.0); ALKALINE PHOSPHATASE 53 U/L (46-116); ASPARTATE AMNIOTRANSFERASE,AST 36 U/L (15-37); BILIRUBIN TOTAL 1.1 mg/dL (0.2-1.0); BLOOD UREA NITROGEN,BUN 21 mg/dL (7-18); CALCIUM 9.4 mg/dL (8.5-10.1); CARBON DIOXIDE,CO2 29 mmol/L (21-32); CHLORIDE,CL 95 mmol/L (100-108); CREATININE 0.5 mg/dL (0.8-1.3); DIGOXIN 1.34 ng/mL (0.90-2.00); ESTIMATED GFR 106 mL/min (>60); GLUCOSE RANDOM 141 mg/dL (74-106); MAGNESIUM 2.1 mg/dL (1.8-2.4); PROTEIN TOTAL,TP 6.7 g/dL (6.4-8.2); SODIUM,NA 133 mmol/L (140-148)
[2023-12-31 07:11] LABS: ANION GAP 13.5 mmol/L (5.0-14.0); POTASSIUM,K 4.5 mmol/L (3.6-5.2)
[2023-12-31] MEDS: Furosemide 20 MG Tab PO SCH (08:08)
[2023-12-31] MEDS ORDERED: Dimethicone 20%/Zinc Oxide 25% 56 GM Spray Bottle TOP PRN (09:22)
[2023-12-31] MEDS ORDERED: Loperamide 2 MG Cap PO PRN (11:10)
[2024-01-01] MEDS: Sodium Chloride 0.9% 500 ML IV SCH (11:03)
[2024-01-01] MEDS: LORazepam 0.5 MG Tab PO PRN (21:01)
[2024-01-02] MEDS: Hydrocortisone Sodium Succinate 100 MG/2 ML SDV IVPUSH ONE (00:32)
[2024-01-02] MEDS: Midodrine 5 MG Tab PO SCH (09:38)
[2024-01-02] MEDS: Sodium Chloride 0.65% Nasal Spray 45 ML Bottle NAS PRN (21:25)
[2024-01-02] MEDS: Nystatin Topical Powder 15 GM Bottle TOP SCH (23:49)
[2024-01-03 05:35] LABS: HEMATOCRIT 35.3 % (38.4-49.7); MEAN CORPUSCULAR HEMOGLOBIN 30.4 pg (31.6-35.5); MEAN CORPUSCULAR VOLUME 89.4 fL (81.4-99.0); RED BLOOD CELL COUNT 3.95 M/uL (4.14-5.76); WHITE BLOOD CELL COUNT,WBC 12.3 K/uL (3.2-11.0)
[2024-01-03 05:56] LABS: ANION GAP 9.8 mmol/L (5.0-14.0); C-REACTIVE PROTEIN 1.7 mg/dL (<0.50); CALCIUM 9.5 mg/dL (8.5-10.1); CREATININE 0.6 mg/dL (0.8-1.3); EST CRCL DRUG DOSING (CG) 108.41 mL/min; POTASSIUM,K 3.8 mmol/L (3.6-5.2)
[2024-01-03] MEDS ORDERED: Nystatin Topical Powder 15 GM Bottle TOP SCH (06:00)
[2024-01-03] MEDS: Nystatin Topical Powder 15 GM Bottle TOP SCH (09:27)
[2024-01-03] MEDS: Furosemide 20 MG Tab PO SCH (10:55)
[2024-01-03] MEDS: Midodrine 5 MG Tab PO SCH (10:55)
[2024-01-04] MEDS: Midodrine 5 MG Tab PO SCH (11:35)
[2024-01-05 05:13] LABS: HEMATOCRIT 33.5 % (38.4-49.7); HEMOGLOBIN 11.2 g/dL (12.9-16.9); MEAN CORPUSCULAR HEMOGLOBIN 30.5 pg (31.6-35.5); MEAN CORPUSCULAR HGB CONC 33.4 g/dL (31.6-35.5); MEAN CORPUSCULAR VOLUME 91.3 fL (81.4-99.0); RED BLOOD CELL COUNT 3.67 M/uL (4.14-5.76); WHITE BLOOD CELL COUNT,WBC 10.2 K/uL (3.2-11.0)
[2024-01-05 05:33] LABS: BLOOD UREA NITROGEN,BUN 10 mg/dL (7-18); C-REACTIVE PROTEIN 5.53 mg/dL (<0.50); CALCIUM 9.1 mg/dL (8.5-10.1); CARBON DIOXIDE,CO2 33 mmol/L (21-32); CHLORIDE,CL 99 mmol/L (100-108); CREATININE 0.5 mg/dL (0.8-1.3); ESTIMATED GFR 106 mL/min (>60); GLUCOSE RANDOM 91 mg/dL (74-106); POTASSIUM,K 3.5 mmol/L (3.6-5.2); SODIUM,NA 137 mmol/L (140-148)
[2024-01-05 05:34] LABS: ANION GAP 8.5 mmol/L (5.0-14.0)
[2024-01-05] MEDS: Potassium Chloride 20 MEQ Tab.ER PO ONE (08:14)
[2024-01-05] MEDS: Doxycycline 100 MG in Sodium Chloride 0.9% 100 ML IV ONE (13:21)
[2024-01-05] MEDS: Doxycycline 100 MG Cap PO SCH (21:06)
[2024-01-07 04:40] LABS: HEMATOCRIT 31.3 % (38.4-49.7); HEMOGLOBIN 10.5 g/dL (12.9-16.9); MEAN CORPUSCULAR HEMOGLOBIN 30.5 pg (31.6-35.5); MEAN CORPUSCULAR HGB CONC 33.5 g/dL (31.6-35.5); RED BLOOD CELL COUNT 3.44 M/uL (4.14-5.76); WHITE BLOOD CELL COUNT,WBC 10.2 K/uL (3.2-11.0)
[2024-01-07 04:59] LABS: BLOOD UREA NITROGEN,BUN 11 mg/dL (7-18); C-REACTIVE PROTEIN 5.06 mg/dL (<0.50); CALCIUM 8.8 mg/dL (8.5-10.1); CARBON DIOXIDE,CO2 29 mmol/L (21-32); CHLORIDE,CL 101 mmol/L (100-108); CREATININE 0.5 mg/dL (0.8-1.3); ESTIMATED GFR 106 mL/min (>60); GLUCOSE RANDOM 98 mg/dL (74-106); POTASSIUM,K 3.6 mmol/L (3.6-5.2); SODIUM,NA 139 mmol/L (140-148)
[2024-01-07 05:14] LABS: ANION GAP 12.6 mmol/L (5.0-14.0)
[2024-01-08] MEDS ORDERED: Aloe Vera/Sodium Chloride Gel 14.1 GM Tube NAS PRN (15:15)
[2024-01-08] MEDS: Furosemide 20 MG/2 ML VIAL IVPUSH SCH (17:26)
[2024-01-09 11:40] LABS: BASOPHILS PERCENT AUTO 0.1 % (0.1-1.3); EOSINOPHILS ABSOLUTE AUTO 0.04 K/uL (0.00-0.40); EOSINOPHILS PERCENT AUTO 0.3 % (0.0-5.4); HEMATOCRIT 34.4 % (38.4-49.7); HEMOGLOBIN 11.3 g/dL (12.9-16.9); IMMATURE GRAN ABSOLUTE AUTO 0.08 K/uL (0.00-0.23); IMMATURE GRAN PERCENT AUTO 0.5 % (0.0-0.7); LYMPHOCYTES ABSOLUTE AUTO 0.62 K/uL (0.8-3.3); LYMPHOCYTES PERCENT AUTO 4.2 % (11.4-47.7); MEAN CORPUSCULAR HEMOGLOBIN 30.6 pg (31.6-35.5); MEAN CORPUSCULAR HGB CONC 32.8 g/dL (31.6-35.5); MEAN CORPUSCULAR VOLUME 93.2 fL (81.4-99.0); MONOCYTES ABSOLUTE AUTO 0.59 K/uL (0.20-0.90); NEUTROPHILS PERCENT AUTO 90.9 % (40.0-78.1); PLATELET COUNT,PLT 154 K/uL (130-375); RED BLOOD CELL COUNT 3.69 M/uL (4.14-5.76); WHITE BLOOD CELL COUNT,WBC 14.7 K/uL (3.2-11.0)
[2024-01-09 11:41] LABS: BASOPHILS ABSOLUTE AUTO 0.02 K/uL (0.00-0.10)
[2024-01-09 11:59] LABS: ANION GAP 12.9 mmol/L (5.0-14.0); CREATININE 0.6 mg/dL (0.8-1.3); EST CRCL DRUG DOSING (CG) 108.41 mL/min; POTASSIUM,K 3.9 mmol/L (3.6-5.2)
[2024-01-09] MEDS: methylPREDNISolone Sodium Succinate 125 MG/2 ML SDV IVPUSH ONE (14:55)
[2024-01-09] MEDS: methylPREDNISolone Sodium Succinate 125 MG/2 ML SDV IVPUSH SCH (21:00)
[2024-01-10] MEDS: Albuterol 6.7 GM Inhaler INH PRN (00:06)
[2024-01-10] MEDS: Albuterol/Ipratropium 3.0-0.5 MG/3 ML Neb Soln NEB SCH ×2 (01:13→07:06)
[2024-01-10] MEDS: Ciprofloxacin in D5W 400 MG in Premix Bag 1 BAG IV SCH (03:00)
[2024-01-10] MEDS: Linezolid 600 MG in Premix Bag 1 BAG IV SCH (03:00)
[2024-01-10] MEDS: Piperacillin/Tazobactam 4.5 GM in Sodium Chloride 0.9% 100 ML IV ONE (03:00)
[2024-01-10] MEDS ORDERED: Piperacillin/Tazobactam 4.5 GM in Sodium Chloride 0.9% 100 ML IV SCH (05:00)
[2024-01-10] MEDS: Albuterol 0.083% 2.5 MG/3 ML Neb Soln NEB PRN (05:30)
[2024-01-10 06:16] LABS: BASE EXCESS ARTERIAL 6.2 mm/L; BICARBONATE,ARTERIAL 29.8 mmol/L (22.0-26.0); CARBOXYHEMOGLOBIN 1.9 % (0.0-1.6); METHEMOGLOBIN 0.7 %; O2 SATURATION ARTERIAL 89.7 % (95.0-98.0); OXYHEMOGLOBIN 87.4 %; PCO2 ARTERIAL 40.2 mmHg (35.0-42.0); PO2 ARTERIAL 58.2 mmHg (75.0-100.0); TOTAL HEMOGLOBIN 11.3 g/dL (13.5-18.0)
[2024-01-10] MEDS: Cefepime 1 GM in Sodium Chloride 0.9% 50 ML IV SCH (06:27)
[2024-01-10 06:36] LABS: CALCIUM 10.3 mg/dL (8.5-10.1); CREATININE 0.6 mg/dL (0.8-1.3); EST CRCL DRUG DOSING (CG) 108.41 mL/min; POTASSIUM,K 3.8 mmol/L (3.6-5.2)
[2024-01-10 06:39] LABS: ANION GAP 11.8 mmol/L (5.0-14.0)
[2024-01-10] MEDS: predniSONE 20 MG Tab PO SCH (08:44)
[2024-01-10] MEDS: Lactobacillus Rhamnosus GG (Probiotic) Cap PO SCH (08:44)
[2024-01-10] MEDS: Furosemide 20 MG/2 ML VIAL IVPUSH SCH (08:44)
[2024-01-10] MEDS: guaiFENesin/Dextromethorphan 100-10 MG/5 ML Soln 10 ML Cup PO PRN (09:51)
[2024-01-10] MEDS: Benzonatate 100 MG Cap PO PRN (21:11)
[2024-01-10 22:46] LABS: BASE EXCESS VENOUS 6.6 mm/L; BICARBONATE,VENOUS 29.7 mmol/L; CARBOXYHEMOGLOBIN 4.8 % (0.0-1.6); METHEMOGLOBIN 0.9 %; O2 SATURATION VENOUS > 99.3; OXYHEMOGLOBIN 94.3 %; PCO2 VENOUS 37.2 mm/Hg; PH,VENOUS 7.513 (7.350-7.450); PO2 VENOUS 174 mm/Hg
[2024-01-11 05:34] LABS: HEMATOCRIT 28.3 % (38.4-49.7); HEMOGLOBIN 9.3 g/dL (12.9-16.9); MEAN CORPUSCULAR HEMOGLOBIN 30.7 pg (31.6-35.5); MEAN CORPUSCULAR HGB CONC 32.9 g/dL (31.6-35.5); MEAN CORPUSCULAR VOLUME 93.4 fL (81.4-99.0); RED BLOOD CELL COUNT 3.03 M/uL (4.14-5.76); WHITE BLOOD CELL COUNT,WBC 10.5 K/uL (3.2-11.0)
[2024-01-11 05:43] LABS: A/G RATIO 0.7 (1.2-2.2); ALANINE AMINOTRANSFERASE,ALT 18 U/L (12-78); ALBUMIN 2.3 g/dL (3.4-5.0); ALKALINE PHOSPHATASE 44 U/L (46-116); ANION GAP 7.7 mmol/L (5.0-14.0); ASPARTATE AMNIOTRANSFERASE,AST 10 U/L (15-37); BILIRUBIN DIRECT 0.08 mg/dL (0.0-0.2); BILIRUBIN TOTAL 0.3 mg/dL (0.2-1.0); BLOOD UREA NITROGEN,BUN 17 mg/dL (7-18); CALCIUM 9.2 mg/dL (8.5-10.1); CARBON DIOXIDE,CO2 32 mmol/L (21-32); CHLORIDE,CL 100 mmol/L (100-108); CREATININE 0.6 mg/dL (0.8-1.3); EST CRCL DRUG DOSING (CG) 108.41 mL/min; ESTIMATED GFR 100 mL/min (>60); GLUCOSE RANDOM 128 mg/dL (74-106); MAGNESIUM 1.7 mg/dL (1.8-2.4); PHOSPHORUS 3.4 mg/dL (2.5-4.9); POTASSIUM,K 3.6 mmol/L (3.6-5.2); PROTEIN TOTAL,TP 5.7 g/dL (6.4-8.2); SODIUM,NA 140 mmol/L (140-148)
[2024-01-11] MEDS: Amiodarone 200 MG Tab PO SCH (08:34)
[2024-01-11] MEDS: Magnesium Sulfate/Water Premix 2 GM in Premix Bag 1 BAG IV ONE (11:27)
[2024-01-12 05:21] LABS: ALBUMIN 2.3 g/dL (3.4-5.0); ANION GAP 11.8 mmol/L (5.0-14.0); BLOOD UREA NITROGEN,BUN 12 mg/dL (7-18); CALCIUM 8.9 mg/dL (8.5-10.1); CARBON DIOXIDE,CO2 31 mmol/L (21-32); CHLORIDE,CL 100 mmol/L (100-108); CREATININE 0.5 mg/dL (0.8-1.3); ESTIMATED GFR 106 mL/min (>60); GLUCOSE RANDOM 110 mg/dL (74-106); POTASSIUM,K 3.8 mmol/L (3.6-5.2); SODIUM,NA 139 mmol/L (140-148)
[2024-01-12] MEDS: Bisacodyl 10 MG Supp RECTAL ONE (20:07)
[2024-01-12] MEDS: Sennosides/Docusate Sodium 50-8.6 MG Tab PO PRN (21:48)
[2024-01-13 04:57] LABS: HEMOGLOBIN 9.8 g/dL (12.9-16.9); MEAN CORPUSCULAR HEMOGLOBIN 30.6 pg (31.6-35.5); MEAN CORPUSCULAR HGB CONC 32.7 g/dL (31.6-35.5); MEAN CORPUSCULAR VOLUME 93.8 fL (81.4-99.0); RED BLOOD CELL COUNT 3.2 M/uL (4.14-5.76); WHITE BLOOD CELL COUNT,WBC 6.4 K/uL (3.2-11.0)
[2024-01-13 05:12] LABS: ALBUMIN 2.4 g/dL (3.4-5.0); BLOOD UREA NITROGEN,BUN 11 mg/dL (7-18); CALCIUM 9.4 mg/dL (8.5-10.1); CARBON DIOXIDE,CO2 32 mmol/L (21-32); CHLORIDE,CL 102 mmol/L (100-108); CREATININE 0.5 mg/dL (0.8-1.3); ESTIMATED GFR 106 mL/min (>60); GLUCOSE RANDOM 111 mg/dL (74-106); MAGNESIUM 1.9 mg/dL (1.8-2.4); PHOSPHORUS 3.7 mg/dL (2.5-4.9); POTASSIUM,K 3.9 mmol/L (3.6-5.2); SODIUM,NA 139 mmol/L (140-148)
[2024-01-13 05:13] LABS: ANION GAP 8.9 mmol/L (5.0-14.0)
[2024-01-13] MEDS: Furosemide 20 MG Tab PO SCH (09:46)
[2024-01-13] MEDS: Potassium Chloride 20 MEQ Tab.ER PO ONE (14:53)
[2024-01-13] MEDS: Furosemide 20 MG Tab PO ONE (14:53)
[2024-01-14 05:07] LABS: HEMATOCRIT 30.6 % (38.4-49.7); HEMOGLOBIN 9.9 g/dL (12.9-16.9); MEAN CORPUSCULAR HGB CONC 32.4 g/dL (31.6-35.5); MEAN CORPUSCULAR VOLUME 92.7 fL (81.4-99.0); RED BLOOD CELL COUNT 3.3 M/uL (4.14-5.76); WHITE BLOOD CELL COUNT,WBC 6.6 K/uL (3.2-11.0)
[2024-01-14] MEDS: Bisacodyl 10 MG Supp RECTAL PRN (19:12)
[2024-01-14] MEDS: Hydrocortisone 2.5% Crm 30 GM Tube TOP ONE (23:22)
[2024-01-14] MEDS: oxyCODONE 5 MG Tab PO ONE (23:26)
[2024-01-15 05:16] LABS: HEMATOCRIT 31.5 % (38.4-49.7); HEMOGLOBIN 10.2 g/dL (12.9-16.9); MEAN CORPUSCULAR HEMOGLOBIN 30.1 pg (31.6-35.5); MEAN CORPUSCULAR HGB CONC 32.4 g/dL (31.6-35.5); MEAN CORPUSCULAR VOLUME 92.9 fL (81.4-99.0); RED BLOOD CELL COUNT 3.39 M/uL (4.14-5.76); WHITE BLOOD CELL COUNT,WBC 6.2 K/uL (3.2-11.0)
[2024-01-15] MEDS: oxyCODONE 5 MG Tab PO ONE (10:14)
[2024-01-15] MEDS: Sulfamethoxazole/Trimethoprim 800-160 MG Tab PO ONE (10:14)
== END 2024-01-15 11:25 | DRG 871 ==
LOC: JP.ED 11:41 → JP.ICU 15:19
PROVIDERS: ADMIT Internal Medicine; ATTEND Internal Medicine
PROC: 03HY32Z Insertion of Monitoring Device into Upper Artery, Percutaneous Approach (ICD-10-PCS; principal; 2023-12-19)
PROC: 4A133B1 Monitoring of Arterial Pressure, Peripheral, Percutaneous Approach (ICD-10-PCS; 2023-12-19)
PROC: 4A133J1 Monitoring of Arterial Pulse, Peripheral, Percutaneous Approach (ICD-10-PCS; 2023-12-19)
PROC: 4A133R1 Monitoring of Arterial Saturation, Peripheral, Percutaneous Approach (ICD-10-PCS; 2023-12-19)
PROC: 5A0935A Assistance with Respiratory Ventilation, Less than 24 Consecutive Hours, High Flow/Velocity Cannula (ICD-10-PCS; 2023-12-19)
PROC: 0BH17EZ Insertion of Endotracheal Airway into Trachea, Via Natural or Artificial Opening (ICD-10-PCS; 2023-12-19)
PROC: 3E033XZ Introduction of Vasopressor into Peripheral Vein, Percutaneous Approach (ICD-10-PCS; 2023-12-19)
PROC: XW033E5 Introduction of Remdesivir Anti-infective into Peripheral Vein, Percutaneous Approach, New Technology Group 5 (ICD-10-PCS; 2023-12-19)
PROC: 3E03329 Introduction of Other Anti-infective into Peripheral Vein, Percutaneous Approach (ICD-10-PCS; 2023-12-19)
PROC: 5A1935Z Respiratory Ventilation, Less than 24 Consecutive Hours (ICD-10-PCS; 2023-12-19)
PROC: 5A1945Z Respiratory Ventilation, 24-96 Consecutive Hours (ICD-10-PCS; 2023-12-20)
PROC: 0BH17EZ Insertion of Endotracheal Airway into Trachea, Via Natural or Artificial Opening (ICD-10-PCS; 2023-12-20)
PROC: 5A0935A Assistance with Respiratory Ventilation, Less than 24 Consecutive Hours, High Flow/Velocity Cannula (ICD-10-PCS; 2023-12-25)
DX: A41.89 Other specified sepsis (principal); J12.82 Pneumonia due to coronavirus disease 2019; U07.1 COVID-19; R65.21 Severe sepsis with septic shock; J15.9 Unspecified bacterial pneumonia; I25.10 Atherosclerotic heart disease of native coronary artery without angina pectoris; J96.21 Acute and chronic respiratory failure with hypoxia; J44.0 Chronic obstructive pulmonary disease with (acute) lower respiratory infection; J44.1 Chronic obstructive pulmonary disease with (acute) exacerbation; J84.9 Interstitial pulmonary disease, unspecified; I48.91 Unspecified atrial fibrillation; H54.7 Unspecified visual loss; R73.9 Hyperglycemia, unspecified; Z79.1 Long term (current) use of non-steroidal anti-inflammatories (NSAID); I70.208 Unspecified atherosclerosis of native arteries of extremities, other extremity; E87.6 Hypokalemia; M06.9 Rheumatoid arthritis, unspecified; M48.061 Spinal stenosis, lumbar region without neurogenic claudication; E78.00 Pure hypercholesterolemia, unspecified; K21.9 Gastro-esophageal reflux disease without esophagitis; G62.9 Polyneuropathy, unspecified; I10 Essential (primary) hypertension; Z99.81 Dependence on supplemental oxygen; Z88.8 Allergy status to other drugs, medicaments and biological substances; Z79.899 Other long term (current) drug therapy; Z79.01 Long term (current) use of anticoagulants; Z79.02 Long term (current) use of antithrombotics/antiplatelets; Z79.51 Long term (current) use of inhaled steroids; Z79.2 Long term (current) use of antibiotics; I25.2 Old myocardial infarction; Z95.5 Presence of coronary angioplasty implant and graft; Z86.0100 Personal history of colon polyps, unspecified; Z98.890 Other specified postprocedural states; Z95.1 Presence of aortocoronary bypass graft
CPT/HCPCS: 0241U; 31500; 36415; 36600; 36620; 51702; 71045; 71250; 71275; 80048; 80053; 80069; 80076; 80162; 80202; 80305; 80307; 81001; 82803; 82947; 83605; 83735; 83880; 84132; 84145; 84443; 84484; 85025; 85027; 85610; 86140; 87040; 87070; 87205; 93005; 93306; 93308; 94002; 94003; 94640; 94668; 96365; 96366; 96368; 97110; 97163; 97165; 97530; 99223; 99232; 99233; 99239; 99285; A9270-GY; C1751; J0282; J0330; J0692; J0696; J0713; J1120; J1160; J1644; J1650; J1720; J1815; J1940; J1956; J2060; J2185; J2250; J2270; J2405; J2470; J2704; J2919; J3370; J3475; J3480; J3490; J7030; J7040; J7050; J7060; J7512; J7620; J8540; P9047; Q9967